=== PATIENT | male | born 1935 | race Caucasian/White ===

== ENCOUNTER 2017-01-12 11:26 | Emergency (ER) | payer OTHER, MEDICAID ==
[~2017-01-12] VITALS: Ht 157.5 cm; Wt 81.5 kg
[~2017-01-12 11:26] MED LIST: ASPI-664; BENA1TAB3; CILO100T; FERR-55 PO; METF500T4; NIFE30TA PO; PANT40TA3 PO; SIMV10TA PO
[2017-01-12 11:45] VITALS: Ht 157.5 cm; Wt 81.5 kg
[2017-01-12 13:04] LABS: ADD SCAN DIFF NO
[2017-01-12 13:09] LABS: BASOPHILS % 0.2 % (0.0-2.0); EOSINOPHILS # 0.1 10^3/ul (0.0-0.5); EOSINOPHILS % 2.8 % (0.0-7.0); HEMATOCRIT 35.5 % (42.0-52.0); HEMOGLOBIN 12.3 g/dl (14.0-18.0); LYMPHOCYTES # 1.2 10^3/ul (0.8-2.9); LYMPHOCYTES % 28.2 % (15.0-51.0); MEAN CORPUSCULAR HEMOGLOBIN 30.6 pg (29.0-33.0); MEAN CORPUSCULAR HGB CONC 34.6 g/dl (32.0-37.0); MEAN CORPUSCULAR VOLUME 88.3 fl (82.0-101.0); MEAN PLATELET VOLUME 10.4 fl (7.4-10.4); MONOCYTE # 0.7 10^3/ul (0.3-0.9); MONOCYTES % 15.2 % (0.0-11.0); NEUTROPHIL # 2.3 10^3/ul (1.6-7.5); NEUTROPHILS % 53.1 % (39.0-77.0); PLATELET COUNT 166 10^3/UL (140-415); RED BLOOD COUNT 4.02 10^6/ul (4.70-6.10); RED CELL DISTRIBUTION WIDTH 12.8 % (11.5-14.5); WHITE BLOOD COUNT 4.3 10^3/ul (4.8-10.8)
--- NOTE | 2017-01-12 13:24 | ERD ---
ER Documentation Chief Complaint Date/Time DATE: 01/12/17 TIME: 13:15 Chief Complaint dry cough x 1 week; no cp complaint; generalized weakness HPI 81-year-old male with history of diabetes, hypertension, dyslipidemia, coronary artery disease status post PCI and remote prostate cancer treated with radiation presents to the ED complaining of a one-week history of nonproductive cough. He was in his usual state of health until a week ago when he developed a fevers, body aches with nonproductive cough. He was treated by his PMD with Levaquin 5 days ago but has not had any significant relief. Has been taking Tylenol and no further fevers or chills. Denies chest pain, palpitations or shortness of breath. Denies abdominal pain, nausea, vomiting, diarrhea or constipation. No dysuria, polyuria, hematuria or flank pain. No headache, visual changes, focal weakness or numbness. No neck or back pain. No anorexia or weight loss. ROS All systems reviewed and are negative except as per history of present illness. Medications Home Meds Active Scripts Benzonatate* (Tessalon Perle*) 100 Mg Capsule, 100 MG PO Q8H Y for COUGH for 10 Days, CAP Prov:NAHEED RM MD 01/12/17 Reported Medications Nifedipine (Nifediac Cc) 30 Mg Tablet.sa, PO DAILY 11/10/11 Simvastatin* (Zocor*) 10 Mg Tablet, PO DAILY 11/10/11 Pantoprazole* (Protonix*) 40 Mg Tablet.dr, PO DAILY 11/10/11 Ferrous Sulfate* (Ferrous Sulfate*) 325 Mg Tablet, 325 MG PO BID 03/02/11 Metformin* (Glucophage*) 500 Mg Tab 01/19/11 Cilostazol* (Cilostazol*) 100 Mg Tablet 01/19/11 Aspirin* (Aspirin* EC) 81 Mg Tablet. 01/19/11 Benazepril/Hydrochlorothiazide (Benazepril-Hctz 20-12.5 Mg Tab) 1 Tab Tablet 01/19/11 Allergies Allergies: Coded Allergies: No Known Allergy (Verified , 11/10/11) PMhx/Soc Reviewed in chart. As per HPI. History of Surgery: Yes (stent placement) Anesthesia Reaction: No Hx Neurological Disorder: No Hx Respiratory Disorders: No Hx Cardiac Disorders: Yes (HTN, HYPERLIPIDEMIA) Hx Psychiatric Problems: No Hx Miscellaneous Medical Probl: Yes (DM) Hx Alcohol Use: No Hx Substance Use: No Hx Tobacco Use: No Smoking Status: Never smoker FmHx Not relevant to presenting complaint. Physical Exam Vitals Vital Signs Date Time Temp Pulse Resp B/P Pulse Ox O2 Delivery O2 Flow Rate FiO2 01/12/17 11:45 98.0 98 18 99/56 95 Physical Exam Const: Alert, elderly in no acute distress Head: Atraumatic Eyes: Normal Conjunctiva ENT: Normal External Ears, Nose and Mouth. Neck: Full range of motion.. No JVD. Nontender. Resp: Breath sounds are equal and clear to auscultation bilaterally Cardio: Regular rate and rhythm, no murmurs Abd: Soft, non tender, non distended. Normal bowel sounds Skin: No petechiae or rashes Back: No midline or flank tenderness Ext: No cyanosis, or edema Neur: Awake and alert. No focal deficit observed. Psych: Normal Mood and Affect Result Diagram: 01/12/17 1243 01/12/17 1243 Results 24 hrs Laboratory Tests Test 01/12/17 12:43 01/12/17 12:58 White Blood Count 4.310^3/ul Red Blood Count 4.0210^6/ul Hemoglobin 12.3g/dl Hematocrit 35.5% Mean Corpuscular Volume 88.3fl Mean Corpuscular Hemoglobin 30.6pg Mean Corpuscular Hemoglobin Concent 34.6g/dl Red Cell Distribution Width 12.8% Platelet Count 11800^3/UL Mean Platelet Volume 10.4fl Neutrophils % 53.1% Lymphocytes % 28.2% Monocytes % 15.2% Eosinophils % 2.8% Basophils % 0.2% Nucleated Red Blood Cells % 0.0/100WBC Neutrophils # 2.310^3/ul Lymphocytes # 1.210^3/ul Monocytes # 0.710^3/ul Eosinophils # 0.110^3/ul Basophils # 0.010^3/ul Nucleated Red Blood Cells # 0.010^3/ul Sodium Level 135mmol/L Potassium Level 4.2mmol/L Chloride Level 103mmol/L Carbon Dioxide Level 23mmol/L Anion Gap 13 Blood Urea Nitrogen 37mg/dl Creatinine 1.88mg/dl Glucose Level 247mg/dl Calcium Level 9.3mg/dl Total Bilirubin 0.1mg/dl Direct Bilirubin 0.00mg/dl Indirect Bilirubin 0.1mg/dl Aspartate Amino Transf (AST/SGOT) 54IU/L Alanine Aminotransferase (ALT/SGPT) 85IU/L Alkaline Phosphatase 91IU/L Troponin I < 0.012ng/ml Total Protein 7.5g/dl Albumin 4.6g/dl Globulin 2.90g/dl Albumin/Globulin Ratio 1.58 Bedside Glucose 247mg/dL EKG: Time: 12:58. Sinus rhythm. Ventricular rate 89, normal [place] and QRS intervals. No acute ST segment elevation or depression. No axis deviation or ectopy. EP Impression: Normal EKG IMAGING: [ ] Procedures/MDM DOCUMENTS REVIEWED: ED nurse, prior ED, prior records MEDICAL DECISION MAKIN-year-old male with history of diabetes, hypertension, dyslipidemia, coronary artery disease status post PCI and remote prostate cancer treated with radiation presents to the ED complaining of a one- week history of nonproductive cough. Patient was treated by his primary care physician with Levaquin with minimal improvement. BUN/creatinine is 37/1.88 and most recent documented was 15/1.October. No hyperkalemia or evidence of acute volume overload although there is blunting of left costophrenic angle consistent with left pleural effusion. Doubt pulmonary embolism. Patient does have a history of prostate cancer and ultrasound be obtained to rule out an obstructive hydronephrosis etiology. Patient was offered admission for further evaluation and workup but wants to go home and see his doctor. Granddaughter is at the bedside who agrees with the patient's decision. Stable for discharge with precautionary instructions and outpatient follow-up as counseled. Counseled patient and family regarding diagnostic workup, diagnosis and need for followup. Understands to return to ED if symptoms recur, worsen or any other concerns. Departure Diagnosis: Primary Impression: Cough Additional Impressions: Acute renal insufficiency Diabetes mellitus type 2 in nonobese History of prostate cancer Condition: Stable NAHEED RM MD Jan 12, 2017 13:24
[2017-01-12 13:35] LABS: ALANINE AMINOTRANSFERASE 85 IU/L (13-69); ALBUMIN 4.6 g/dl (3.3-4.9); ALBUMIN/GLOBULIN RATIO 1.58; ALKALINE PHOSPHATASE 91 IU/L (42-121); ANION GAP 13 (8-16); ASPARTATE AMINO TRANSFERASE 54 IU/L (15-46); BILIRUBIN,INDIRECT 0.1 mg/dl (0-1.1); BILIRUBIN,TOTAL 0.1 mg/dl (0.2-1.3); BLOOD UREA NITROGEN 37 mg/dl (7-20); CALCIUM 9.3 mg/dl (8.4-10.2); CARBON DIOXIDE 23 mmol/L (21-31); CHLORIDE 103 mmol/L (97-110); CREATININE 1.88 mg/dl (0.61-1.24); GLUCOSE 247 mg/dl (70-220); POTASSIUM 4.2 mmol/L (3.5-5.1); SODIUM 135 mmol/L (135-144); TOTAL PROTEIN 7.5 g/dl (6.1-8.1)
[2017-01-12 13:46] LABS: TROPONIN-I < 0.012 ng/ml (0.00-0.12)
[2017-01-12] MEDS ORDERED: BENZ100C70 PO (14:08)
--- NOTE | 2017-01-12 14:24 | RADRPT ---
PROCEDURE: XR Chest. CLINICAL INDICATION: Chest pain. Blunting of left costophrenic angle. TECHNIQUE: Single frontal view of the chest was obtained. COMPARISON: Chest x-ray 09/16/2008 06:53 a.m. FINDINGS: The soft tissues are generous. There are degenerative osteophytes in the thoracic spine. The heart is upper limits of normal. The cardiomediastinal silhouette and hilar structures are normal. The p ulmonary vasculature is normal. There are vascular calcifications in the aortic arch. The lungs are clear. The left costophrenic angle is blunted and unchanged compared to 2008. This may be the res ult of pleural scarring. IMPRESSION: 1. Pleural scarring versus a chronic left pleural effusion blunting the left costophrenic angle. 2. Atherosclerosis of the aortic arch. 3. The left ventricle is upper limits of normal. 4. Stable chest compared to 09/16/2008. RPTAT:AAJJ Physician Janine Date Time Electronically viewed and signed by Rubio Schwab Physician on 01/12/2017 14:24 /
[2017-01-12 14:30] VITALS: PULSE 88; TEMP 98
[2017-01-12] MEDS ORDERED: LEVO88TA3 PO (14:51)
[2017-01-12] MEDS ORDERED: BENA1TAB14 PO (14:54)
[2017-01-12] MEDS ORDERED: ASPI-664 PO (14:55)
[2017-01-12] MEDS ORDERED: GABA300C16 PO (14:57)
[2017-01-12] MEDS ORDERED: GLIM4TAB PO (14:57)
[2017-01-12] MEDS ORDERED: MELO-109 PO (14:58)
[2017-01-12] MEDS ORDERED: OMEP20CA16 PO (14:58)
[2017-01-12] MEDS ORDERED: CETI10CA PO (14:59)
[2017-01-12] MEDS ORDERED: LEVO500T72 PO (14:59)
[2017-01-12] MEDS ORDERED: SIMV10TA PO (14:59)
[2017-01-12] MEDS ORDERED: LANT3I SC ×2 (15:00)
[2017-01-12] MEDS ORDERED: UDROBDM PO (15:00)
[2017-01-12] MEDS ORDERED: INSU100C SQ (15:00)
--- NOTE | 2017-01-12 15:39 | RADRPT ---
PROCEDURE: Retroperitoneal ultrasound. CLINICAL INDICATION: Flank pain, hydronephrosis TECHNIQUE: Coe scale and color doppler ultrasound images of the retroperitoneum, kidneys, urinary bladder COMPARISON: CT abdomen pelvis 02/20/2008 FINDINGS: Right kidney 9.1 cm in length. Right renal cortical thickness is preserved. Left kidney 9.4 cm in length. Left renal cortical thickness is preserved. Normal echogenicity. No hydronephrosis. No renal calculi. No focal lesions. Bladder: No focal lesions. IMPRESSION: Kidneys are slightly small in size however cortical thickness is maintained. Normal echogenicity of both kidneys without hydronephrosis. RPTAT: AADD .Allen Garnett MD, MD Date Time Electronically viewed and signed by .Allen Garnett MD, on 01/12/2017 15:39 .B/
[2017-01-12 15:49] LABS: ADD UMIC NO; UR ASCORBIC ACID NEGATIVE (NEGATIVE); UR BILIRUBIN (Dip) NEGATIVE (NEGATIVE); UR BLOOD (Dip) NEGATIVE (NEGATIVE); UR CLARITY SLIGHTLY CLOUDY (CLEAR); UR COLOR YELLOW (YELLOW); UR GLUCOSE (Dip) NEGATIVE (NEGATIVE); UR KETONES (Dip) NEGATIVE (NEGATIVE); UR LEUKOCYTE ESTERASE (Dip) NEGATIVE Leu/ul (NEGATIVE); UR NITRITE (Dip) NEGATIVE (NEGATIVE); UR RBC 1 /HPF (0-5); UR SPECIFIC GRAVITY (Dip) 1.017 (1.003-1.030); UR TOTAL PROTEIN (Dip) NEGATIVE (NEGATIVE); UR UROBILINOGEN (Dip) NEGATIVE (NEGATIVE)
[2017-01-12 17:23] VITALS: BP 148/75; RESP 18
== END 2017-01-12 17:30 | disposition home or self-care (01) ==
LOC: E/R 11:26
DX: R05 Cough (principal); N28.9 Disorder of kidney and ureter, unspecified; E11.9 Type 2 diabetes mellitus without complications; I10 Essential (primary) hypertension; I25.10 Atherosclerotic heart disease of native coronary artery without angina pectoris; Z85.46 Personal history of malignant neoplasm of prostate; Z79.84 Long term (current) use of oral hypoglycemic drugs; Z98.61 Coronary angioplasty status; Z79.82 Long term (current) use of aspirin
CPT/HCPCS: 71010; 76775; 80053; 81001; 81003; 82962; 84484; 85025; 93005